=== PATIENT | male | born 1965 | race Caucasian/White ===

== ENCOUNTER 2022-11-16 08:33 | Emergency (ER) | payer OTHER, SELFPAY ==
[2022-11-16 08:49] VITALS: BP 124/81; PULSE 60; RESP 16; TEMP 36.9; O2SAT 98
--- NOTE | 2022-11-16 09:15 | ED.SKABFB ---
HPI - Skin/Abscess/Foreign Bdy General Chief complaint: Skin/Abscess/Foreign Body Stated complaint: right thumb irritation Time Seen by Provider: 11/16/22 08:54 Source: patient and RN notes reviewed Mode of arrival: ambulatory Limitations: no limitations History of Present Illness HPI narrative: Patient presents today complaining of a week history of redness and irritation to the right thumb. This area has started to drain, likely from a blister that has ruptured. He had been putting up a long length since that may have contributed, as he was not wearing gloves. He tried popping the area with a needle without relief of symptoms. He is currently pain-free. He has tried antibiotic ointment. Denies numbness or tingling. Related Data Allergies Allergy/AdvReac Type Severity Reaction Status Date / Time tetracycline Allergy Unknown Unknown Verified 11/16/22 09:18 Review of Systems Review of Systems: CONSTITUTIONAL: Denies body aches, fever, chills, or sweats. EYES: Denies visual changes, redness, or discharge. ENT: Denies rhinorrhea, congestion, sore throat, or otalgia. CARDIOVASCULAR: Denies chest pain, palpitations, or edema. RESPIRATORY: Denies cough or dyspnea. GASTROINTESTINAL: Denies abdominal pain, nausea, vomiting, or diarrhea. GENITOURINARY: Denies dysuria or hematuria. SKIN: + wound and drainage from right thumb MUSCULOSKELETAL: Denies back pain, joint pain, or myalgia. NEUROLOGIC: Denies headache, numbness, tingling, or weakness. PSYCH: Denies depression or anxiety. PMFSH Comments At time of signature, I have reviewed and agree with nursing past medical, surgical, social and family history unless otherwise noted. Please see nursing chart for further information. There is no relevant family history pertinent to the presenting complaint Exam Narrative: GENERAL: Well-appearing, well-nourished, and in no acute distress. HEAD: Normocephalic, atraumatic. EYES: EOMI. No redness or drainage. Conjunctivae normal. ENT: Mucous membranes pink and moist. NECK: Normal AROM. CHEST: No respiratory distress. EXTREMITIES: Right thumb: Large open wound to the webbing between fingers 1 and 2. There seems to be an area of fluctuance measuring approximately 1 x 1 cm. Skin is moist and erythematous. Distal sensation intact. Capillary refill normal. Full range of motion of the thumb. Area is nontender. SKIN: Warm, dry, no rash. Capillary refill normal. Normal skin turgor. NEURO: No focal deficits. Alert and oriented x3. Gait steady. PSYCH: Normal affect. No signs of depression or anxiety. Course Course Level of Care: Express Care Visit Vital Signs Vital signs: Vital Signs Temperature 98.4 F 11/16/22 08:49 Pulse Rate 60 11/16/22 08:49 Respiratory Rate 16 11/16/22 08:49 Blood Pressure 124/81 11/16/22 08:49 Pulse Oximetry 98 11/16/22 08:49 Oxygen Delivery Room Air 11/16/22 08:49 Temperature 98.4 F 11/16/22 08:49 Pulse Rate 60 11/16/22 08:49 Respiratory Rate 16 11/16/22 08:49 Blood Pressure 124/81 11/16/22 08:49 Pulse Oximetry 98 11/16/22 08:49 Oxygen Delivery Room Air 11/16/22 08:49 Reviewed. Pt has been instructed to follow up with his PCP regarding his elevated blood pressure today. Procedures Abscess I/D hand: Date of Incision: 11/16/22 Time of Incision: 09:21 Side (if applicable): right Sedation/analgesia: none Local Anesthetic: none Technique: other (needle puncture with #23 g needle) Amount of fluid expressed (mL): 0 I&D Results: Nothing Abcess I&D Additional Comments: Area cleansed with Betadine. no drainage noted from needle puncture site. Dressed with large Band-Aid. MDM - Skin/Abscess/Foreign Bdy MDM Narrative Medical decision making narrative: No drainage from finger resulting. Will treat patient for cellulitis with Keflex. Instructed to keep area covered until dry and/or scabbed.
== END 2022-11-16 09:29 | disposition home or self-care (01) ==
PROVIDERS: Emergency Provider Nurse Practitioner; PCP Family Medicine Adolescent Medicine
DX: L03.011 Cellulitis of right finger (principal)
CPT/HCPCS: 10060; 99213; G0463

== ENCOUNTER 2023-05-04 08:11 | Emergency (ER) | payer OTHER, SELFPAY ==
--- NOTE | ~2023-05-04 | XR_ITS ---
EXAMINATION: XR chest 2V DATE: 05/04/2023 08:43 INDICATION: Cough. TECHNIQUE: Frontal and lateral views of the chest were obtained on 3 radiographs. COMPARISON: None. FINDINGS: There is mild scarring at the lung apices. There is no pneumonia, pleural effusion, or pneu mothorax. The heart size is normal. IMPRESSION: 1. Mild scarring at the lung apices. Reviewed, dictated and finalized at location A. [employer]
[2023-05-04 08:23] VITALS: BP 111/81; PULSE 90; RESP 18; TEMP 36.4; O2SAT 96
--- NOTE | 2023-05-04 08:25 | ED.URI ---
HPI - URI/Sore Throat General Chief Complaint: Upper Respiratory Infection Stated Complaint: cough,loss of voice,hard to catch breath Time Seen by Provider: 05/04/23 08:14 Source: patient Mode of arrival: ambulatory Limitations: no limitations History of Present Illness HPI Narrative: Lencho is a 58-year-old male patient presenting to the clinic today with complaints of shortness of breath, cough, and hoarseness. He reports no sore throat. No known fever or chills. SpO2 96% on room air. No history of bronchitis or pneumonia. Symptoms started 10 days ago. MD elicited complaint: sore throat and nasal congestion Related Data Allergies Allergy/AdvReac Type Severity Reaction Status Date / Time tetracycline Allergy Unknown Unknown Verified 05/04/23 08:19 Review of Systems Review of Systems: Pertinent positives per HPI. Patient denies any fever, chills, rash, headache, visual changes, dizziness,chest pain, palpitations, nausea, vomiting, diarrhea, constipation, abdominal pain, or any urinary issues. PMFSH Past Medical History Medical History Cholesteatoma of left middle ear hx of surgical repair, [place] a lot of hearing loss Surgical History Surgical History S/P orchiopexy age 7 Family History Family History Father , 1996 Brain tumor Sibling , age 17: sudden cardiac hole in the heart No problems noted. Mother , AGE 83 COPD (chronic obstructive pulmonary disease) Social History Social History Smoking status: Former smoker Alcohol intake: current Drinks per week: 2 Substance use: never Occupation/Education: occupation Comments At the time of my signature, I reviewed and agree with the nursing past medical, surgical, social, and family history. There is no relevant family history pertinent to the patient complaint. Exam Narrative: General: Well-developed, well nourished, in no apparent distress Head: Normocephalic, atraumatic Eyes: Pupils equally round and reactive to light bilaterally, EOM intact, sclera and conjunctive clear, no discharge, lids normal Ears: TMs intact and congested, ear canals clear, no drainage, grossly hearing normal. Nose: Nares patent, green nasal nasal discharge, moderate inflammation, maxillary sinus tenderness. Mouth: Oral pharynx red without lesions or masses, good dentition, MMM. Neck: Supple, trachea midline, no enlargement of anterior or posterior cervical nodes, no thyroid masses or goiter palpable. Cardio: Regular rate and rhythm, s1 and s2 normal, no murmur appreciated. Resp: Faint crackles in the bases, no rhonchi,wheezing or rubs Course Course Emergency Course: Portions of this record may have been created with voice recognition software. Level of Care: Express Care Visit Vital Signs Vital signs: Vital Signs Temperature 36.4 C L 05/04/23 08:23 Pulse Rate 90 05/04/23 08:23 Respiratory Rate 18 05/04/23 08:23 Blood Pressure 111/81 05/04/23 08:23 Pulse Oximetry 96 05/04/23 08:23 Oxygen Delivery Room Air 05/04/23 08:23 Temperature 36.4 C L 05/04/23 08:23 Pulse Rate 90 05/04/23 08:23 Respiratory Rate 18 05/04/23 08:23 Blood Pressure 111/81 05/04/23 08:23 Pulse Oximetry 96 05/04/23 08:23 Oxygen Delivery Room Air 05/04/23 08:23 Vital signs reviewed MDM - URI/Sore Throat MDM Narrative Medical decision making narrative: At the time of visit patient is resting comfortably on the exam table. Patient appears to be nontoxic. I suspect patient has acute bacterial rhinosinusitis. Prescription for Augmentin, prednisone, Tessalon Perles, and albuterol inhaler was sent to the pharmacy. Supportive measures were discussed with the patie
== END 2023-05-04 09:15 | disposition home or self-care (01) ==
PROVIDERS: Emergency Provider Nurse Practitioner Family; PCP Family Medicine Adolescent Medicine
DX: J01.90 Acute sinusitis, unspecified (principal); Z87.891 Personal history of nicotine dependence
CPT/HCPCS: 71046; 87081; 87880; 99213; G0463

== ENCOUNTER 2023-12-11 15:11 | Outpatient (CLI) | payer OTHER, SELFPAY ==
--- NOTE | ~2023-12-11 | XR_ITS ---
XR knee LT 3V 12/11/2023 15:31 Indication: Left knee pain Procedure: 3 views left knee Comparison: No prior studies for comparison. Findings: There is tricompartment osteoarthritis, most advanced in the medial compartment. Small join t effusion. No acute fracture or traumatic malalignment. 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 Reviewed, dictated and finalized at location B. 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
== END 2023-12-11 15:12 ==
LOC: MICIMG 15:12
PROVIDERS: PCP Family Medicine Adolescent Medicine; Visit Provider Family Medicine Adolescent Medicine
DX: M17.12 Unilateral primary osteoarthritis, left knee (principal)
CPT/HCPCS: 73562